=== PATIENT | female | born 2000 | race Hispanic/Latino ===

== ENCOUNTER 2023-04-25 19:57 | Emergency (ER) | payer MEDICAID, OTHER ==
[~2023-04-25] VITALS: Ht 157.5 cm; Wt 93.0 kg
[2023-04-25 21:02] LABS: BASOPHILS # (AUTO) 0.02 K/uL (0.00-0.20); BASOPHILS % (AUTO) 0.2 % (0.0-5.0); EOSINOPHILS # (AUTO) 0.08 K/uL (0.00-0.70); EOSINOPHILS % (AUTO) 0.8 % (0.0-8.0); HEMATOCRIT 39.7 % (36-48); IMMATURE GRANULOCYTE ABSOLUTE 0.03 K/uL (0-1); LYMPHOCYTES # (AUTO) 1.6 K/uL (1.0-4.8); MEAN CORPUSCULAR HEMOGLOBIN 30.8 pg (27.0-33.0); MEAN CORPUSCULAR VOLUME 87.8 fL (79-99); MONOCYTES # (AUTO) 0.6 K/uL (0.1-1.0); MONOCYTES % (AUTO) 5.7 % (3.0-13.0); NEUTROPHILS # (AUTO) 7.6 K/uL (1.8-7.7); PLATELET COUNT (AUTO) 307 K/uL (130-400); RED BLOOD CELL COUNT(AUTO) 4.52 MIL/uL (4.00-5.50); RED CELL DISTRIBUTION WIDTH 12.3 % (11.0-15.5); WHITE BLOOD COUNT (AUTO) 9.9 K/uL (4.8-10.8)
[2023-04-25 21:20] LABS: CREATININE 0.7 mg/dL (0.5-1.0); POTASSIUM 3.8 mmol/L (3.5-5.1)
[2023-04-25 21:25] LABS: ALBUMIN 3.4 g/dL (3.5-5.0); BILIRUBIN,TOTAL 0.2 mg/dL (0.2-1.0); TOTAL PROTEIN, SERUM 7.4 g/dL (6.0-8.3)
[2023-04-25] MEDS ORDERED: IOHEXOL 350 MG/ML 100ML INFUS..BTL IV ONE (21:29)
[2023-04-25] MEDS ORDERED: DOCU-116 PO (22:42)
[2023-04-25 22:47] VITALS: BP 118/80; PULSE 82; RESP 16; O2SAT 98
== END 2023-04-25 22:54 | disposition home or self-care (01) ==
LOC: EDH 19:57
DX: K52.9 Noninfective gastroenteritis and colitis, unspecified (principal); K62.5 Hemorrhage of anus and rectum; F41.9 Anxiety disorder, unspecified; F32.A Depression, unspecified; Z98.890 Other specified postprocedural states
CPT/HCPCS: 99285; 74177; 80053; 84703; 85025; 36415; Q9967

== ENCOUNTER 2023-04-29 15:00 | Emergency (ER) | payer OTHER ==
[~2023-04-29] VITALS: Ht 157.5 cm; Wt 93.0 kg
[~2023-04-29 15:00] MED LIST: DOCU-116 PO
[2023-04-29 18:04] LABS: BASOPHILS # (AUTO) 0.02 K/uL (0.00-0.20); BASOPHILS % (AUTO) 0.2 % (0.0-5.0); EOSINOPHILS # (AUTO) 0.13 K/uL (0.00-0.70); EOSINOPHILS % (AUTO) 1.3 % (0.0-8.0); HEMATOCRIT 42.6 % (36-48); IMMATURE GRANULOCYTE ABSOLUTE 0.03 K/uL (0-1); LYMPHOCYTES # (AUTO) 2.2 K/uL (1.0-4.8); LYMPHOCYTES % (AUTO) 21.6 % (21.0-51.0); MEAN CORPUSCULAR HEMOGLOBIN 30.6 pg (27.0-33.0); MEAN CORPUSCULAR HGB CONC 34.3 g/dL (32.0-36.0); MEAN CORPUSCULAR VOLUME 89.3 fL (79-99); MONOCYTES # (AUTO) 0.6 K/uL (0.1-1.0); MONOCYTES % (AUTO) 6.2 % (3.0-13.0); NEUTROPHILS # (AUTO) 7.2 K/uL (1.8-7.7); NEUTROPHILS % (AUTO) 70.4 % (40.0-77.0); PLATELET COUNT (AUTO) 296 K/uL (130-400); RED BLOOD CELL COUNT(AUTO) 4.77 MIL/uL (4.00-5.50); RED CELL DISTRIBUTION WIDTH 12.2 % (11.0-15.5); WHITE BLOOD COUNT (AUTO) 10.3 K/uL (4.8-10.8)
[2023-04-29 18:16] LABS: CREATININE 0.7 mg/dL (0.5-1.0); POTASSIUM 3.7 mmol/L (3.5-5.1)
[2023-04-29 18:22] LABS: ALBUMIN 3.4 g/dL (3.5-5.0); BILIRUBIN,TOTAL 0.4 mg/dL (0.2-1.0); TOTAL PROTEIN, SERUM 7.4 g/dL (6.0-8.3)
[2023-04-29] MEDS: 0.9%NACL 1000ML 1,000 ML IV SCH (18:28)
[2023-04-29] MEDS: ONDANSETRON 4MG INJ ONE (18:29)
[2023-04-29] MEDS: ONDANSETRON 4MG INJ IVP SCH (18:29)
[2023-04-29] MEDS ORDERED: ONDA4TAB10 PO (18:42)
[2023-04-29] MEDS ORDERED: FAMO-136 PO (18:42)
[2023-04-29] MEDS ORDERED: LACT1CAP65 PO (18:42)
[2023-04-29 19:33] VITALS: BP 135/70; PULSE 90; RESP 17; O2SAT 96
== END 2023-04-29 19:35 | disposition home or self-care (01) ==
LOC: EDH 15:00
DX: K52.9 Noninfective gastroenteritis and colitis, unspecified (principal); F41.9 Anxiety disorder, unspecified; F32.A Depression, unspecified; Z98.890 Other specified postprocedural states
CPT/HCPCS: 99283; 96374; 83735; 80053; 83690; 85025; 36415; J7030; J2405

== ENCOUNTER 2025-02-04 22:07 | Emergency (ER) | payer SELFPAY ==
[~2025-02-04] VITALS: Ht 154.9 cm; Wt 87.5 kg
[~2025-02-04 22:07] MED LIST changes: +FAMO-136 PO; +LACT1CAP65 PO; +ONDA-243 PO
[2025-02-04 22:08] VITALS: BP 143/87; PULSE 100; RESP 20; TEMP 98.2
[2025-02-04 22:28] LABS: RAPID GROUP A STREP negative (NEGATIVE)
--- NOTE | 2025-02-04 22:33 | ERN ---
ED Note History of Present Illness Stated Complaint: C/O COUGH, SORE THROAT, N X V, CONGESTION,BODYACHE Chief Complaint: Sore Throat Time Seen by MD: 22:09 Time Seen by Midlevel: 22:09 Dictation: The patient is a 24-year-old female with no past medical history who presents to the emergency department with complaints of congestion, fever, sore throat, nonproductive cough, body aches, nausea and nonbloody diarrhea onset yesterday patient denies any abdominal pain. Allergies: Coded Allergies: No Known Allergies (Unverified Allergy, Unknown, 04/25/23) Home Meds Active Scripts Ondansetron (Ondansetron Odt) 4 Mg Tab.rapdis, 4 MG PO Q6HPRN PRN for nausea, #16 TAB 0 [facility]/04[facility]25 Oseltamivir Phosphate (Tamiflu) 75 Mg Cap, 75 MG PO BID for 5 Days, #10 CAP Prov:ISRAEL GUZMAN [facility] 02/04/25 Lactobac Cmb #3/Fos/Pantethine (Probiotic & Acidophilus Cap) 300MM-250 Capsule, 1 EACH PO DAILY for 14 Days, #14 CAP 0 Refills Prov:JAYE LANDERS [facility] 04/29/23 Ondansetron (Ondansetron Odt) 4 Mg Tab.rapdis, 4 MG PO Q6HPRN PRN for nausea, #15 TAB 0 Refills Prov:JAYE LANDERS [facility] 04/29/23 Famotidine (Pepcid) 20 Mg Tablet, 20 MG PO DAILY for 14 Days, #14 TAB 0 Refills Prov:JAYE LAND[facility] 04/29/23 Docusate Sodium (Colace) 100 Mg Capsule, 100 MG PO DAILY, #30 CAP Prov:WAYNE SANTOS [facility] 04/25/23 Past Medical History Past Medical History: No Pertinent History Additional Past Medical Hx: HX OF PTSD Surgical History: None Social History: Negative, Lives with family LMP: Jan 17, 2025 RN Note Reviewed/Agreed w/PFSH: Yes Review of System Dictation Constitutional: Negative for,chills, and weight loss positive for fever Eyes: Negative for injury, pain,redness, and discharge ENT: Negative for injury,pain or swelling positive for sore throat Cardiovascular: Negative for chest pain, palpitations, and edema Respiratory: Negative for shortness of breath, and wheezing, positive for cough Abdomen/GI: Negative for abdominal pain, nausea, vomiting, and constipation positive for diarrhea Back: Negative for injury and pain : Negative for injury, bleeding and discharge MS/Extremity: Negative for injury and deformity Skin: Negative for rash, and discoloration Neuro: Negative for headache, weakness, numbness, tingling, and seizure Psych: Negative for suicide ideation, homicidal ideation, and hallucinations Initial Vital Sign VS Vital Signs Date Time Temp Pulse Resp B/P (MAP) Pulse Ox O2 Delivery O2 Flow Rate FiO2 02/04/25 22:08 98.2 100 20 143/87 97 Room Air Physical Exam Dictation Vital Signs reviewed General Appearance: Alert, oriented x 3, no acute distress, well developed, nourished. Head and Face: non-traumatic. Eyes: PERRL, pink conjunctivas, eyelid no trauma, anterior chamber with arcus senilis. Ears: Pinnas intact and no signs of trauma or erythema ear canals clear and no discharge TM no erythema Nose: No discharge, no bleeding. Oropharynx: Mouth normal, tongue pink. pharynx clear,no erythema, tonsils no exudates, no abscesses noted, mucous membrane moist Neck: Supple, non-tender, no thyromegaly, no masses, no JVD, no bruits Breast:Deferred Chest:No tenderness, no crepitus, no paradoxical movement, no retractions Lungs:Clear, well-ventilated, symmetric, no rales, no wheezing, no rhonchi, no stridor, good breath sounds bilaterally Heart: Regular rate, regular rhythm, no murmur, no gallops Vascular: no peripheral edema, Abdomen: Soft, positive bowel sounds, nondistended, no guarding, nontender, no rebound, no masses no hepatomegaly, no splenomegaly, no De Leon's sign, no hernias. Rectal: Deferred Genital: Deferred Neurological: Normal speech, motor function intact, sensory function intact Musculoskeletal: Neck nontender, full range of motion, back nontender, full range of motion, Extremities: nontender, full range of motion Skin: Color pink, dry, no turgor, no rash, no lacerations, no abrasions, no contusions. Lymphatic: Deferred Results (Laboratory/Radiology) Laboratory/Radiology Laboratory Tests Test 02/04/25 22:10 Influenza Type A Antigen Positive For Type A Influenza Type B Antigen Negative For Type B SARS-CoV-2 Antigen (Rapid) PRESUMPTIVE NEGATIVE Group A Streptococcus Rapid negative (NEGATIVE) Labs Reviewed?: Yes ED Course ED Course Orders Procedure Category Date Status Time Influenza Type A & B, LAB 02/04/25 Complete Rapid 22:12 Rapid (Group A Strep) LAB 02/04/25 Complete 22:12 Covid19 (Sars Antigen LAB 02/04/25 Complete Rapid) 22:12 Acetaminophen 500mg PHA 02/04/25 Complete Tab (Tylenol 500mg T 22:30 Ondansetron Odt 4mg PHA 02/04/25 Complete Tab (Zofran 4mg Odt) 22:30 Oseltamivir Phosphate PHA 02/04/25 In Process (Tamiflu) 23:00 Current Medications Medications (Trade) Dose Ordered Sig/Danielle Route PRN Reason Start Time Stop Time Status Last Admin Dose Admin Acetaminophen (TYLenol 500MG TAB) 1,000 mg ONCE ONCE PO 02/04/25 22:30 02/04/25 22:31 DC 02/04/25 22:34 Ondansetron HCl (zoFRAN 4MG ODT) 4 mg ONCE ONCE SL 02/04/25 22:30 02/04/25 22:31 DC 02/04/25 22:34 Oseltamivir Phosphate (Tamiflu) 75 mg ONCE ONCE PO 02/04/25 23:00 02/04/25 23:01 Vital Signs Date Time Temp Pulse Resp B/P (MAP) Pulse Ox O2 Delivery O2 Flow Rate FiO2 02/04/25 22:08 98.2 100 20 143/87 97 Room Air Medical Decision Making MDM The patient is a 24-year-old female with no past medical history who presents to the emergency department with complaints of congestion, fever, sore throat, nonproductive cough, body aches, nausea and nonbloody diarrhea onset yesterday patient denies any abdominal pain. Serology was positive for influenza A. Patient will be treated with Tamiflu. Patient otherwise in no acute distress, nontoxic appearance, clear lung sounds, stable vital signs. Patient will be discharged to follow up with the PCP. Differential diagnosis: Influenza, strep throat, COVID-19 Need for hospitalization: Patient does not meet criteria for hospitalization. There are no social concerns with this patient. DX & DISP Disposition: Discharge Departure Impression: Primary Impression: Influenza A Condition: Stable Scripts Ondansetron (Ondansetron Odt) 4 Mg Tab.rapdis 4 MG PO Q6HPRN PRN for nausea, #16 TAB 0 Refills Prov: IS[facility]EL GUZMAN [facility] 02/04/25 Oseltamivir Phosphate (Tamiflu) 75 Mg Cap 75 MG PO BID for 5 Days, #10 CAP [facility] 02/04/25 Additional Instructions: You tested positive for influenza A. You were prescribed Tamiflu which is an antiviral medication. Please follow up with your PCP in 1-2 days. FOLLOW-UP WITH PRIMARY CARE PROVIDER IN 1 TO 2 DAYS. TAKE MEDICATIONS DIRECTED HERE IN THE EMERGENCY ROOM. OKAY TO CONTINUE HOME MEDICATIONS UNLESS OTHERWISE DISCUSSED DURING YOUR VISIT IN THE EMERGENCY ROOM TODAY. RETURN TO YOUR NEAREST EMERGENCY ROOM IF SYMPTOMS WORSEN OR IF THERE IS NO IMPROVEMENT. CALL 911 IF YOU NEED IMMEDIATE ASSISTANCE. TAKE TYLENOL AEVV-XNP-SENGDSR NEEDED AND IF NO CONTRAINDICATIONS ARE PRESENT. INCREASE ORAL HYDRATION. A WOUND CULTURE OR URINE CULTURE WAS ORDERED HERE IN THE EMERGENCY ROOM DEPARTMENT PLEASE FOLLOW-UP WITH PRIMARY CARE PROVIDER AND ADVISE THEM TO GET REPEAT PORTS FROM OUR FACILITY. IF YOU HAD ANY AMARA WRAP/SPLINTS THAT WERE APPLIED HERE, PLEASE DO NOT REMOVE THEM UNTIL YOU SEE YOUR PRIMARY CARE OR SPECIALTY. Referrals: SELF,REFERRAL (PCP) Time of Disposition: 22:41 I have reviewed the case, and I agree with, Diagnosis and Plan [facility]EL GUZ[facility] Feb 04, 2025 22:33
[2025-02-04 22:37] LABS: COVID19 (SARS ANTIGEN RAPID) PRESUMPTIVE NEGATIVE (NEGATIVE); INFLUENZA TYPE B Negative For Type B (NEGATIVE)
[2025-02-04 22:39] LABS: INFLUENZA TYPE A Positive For Type A (NEGATIVE)
[2025-02-04] MEDS ORDERED: OSEL75 PO (22:41)
[2025-02-04] MEDS ORDERED: ONDA-243 PO (22:42)
[2025-02-04] MEDS: OSELTAMIVIR PHOSPHATE 75 MG CAP PO ONE (22:51)
== END 2025-02-04 22:52 | disposition home or self-care (01) ==
LOC: EDH 22:07
DX: J10.1 Influenza due to other identified influenza virus with other respiratory manifestations (principal); Z20.822 Contact with and (suspected) exposure to COVID-19
CPT/HCPCS: 87426; 87804; 87880; 99284